=== PATIENT | female | born 1980 ===

== ENCOUNTER → 2016-09-22 | Outpatient (CLI) | payer OTHER ==
[2016-09-22 13:34] LABS: BASO % 0.6 %; BASO ABS # 0.04 K/uL (0-0.2); COMPLETE YES; EOS % 4.6 %; HEMATOCRIT 35.4 % (37-47); IG% 0.3 %; LYMPH % 33.5 %; LYMPH ABS # 2.26 K/uL (1.2-3.4); MEAN CELL VOLUME 83.9 fL (80-100); MEAN CORPUSCULAR HEMOGLOBIN 27.7 pg (25-34); MEAN CORPUSCULAR HGB CONC 33.1 g/dl (32-36); MEAN PLATELET VOLUME 11.7 fL (7.4-10.4); MONO % 7.3 %; NEUT % 53.7 %; PLATELET COUNT 227 K/uL (130-400); RED BLOOD COUNT 4.22 M/uL (4.2-5.4); WHITE BLOOD COUNT 6.74 K/uL (4.8-10.8)
[2016-09-22 14:11] LABS: ALT/SGPT 19 U/L (12-78); AST/SGOT 12 U/L (15-37); BLOOD UREA NITROGEN 9 mg/dl (7-18); BUN/CREATININE RATIO 14.3 (10-20); CARBON DIOXIDE 25 mmol/L (21-32); CHLORIDE 105 mmol/L (98-107); CREATININE 0.66 mg/dl (0.60-1.20); GLUCOSE 83 mg/dl (70-99); POTASSIUM 3.9 mmol/L (3.5-5.1); SODIUM 139 mmol/L (136-145)
[2016-09-22 14:23] LABS: ALB/GLOB RATIO 1.1 (0.9-2); ALKALINE PHOSPHATASE 65 U/L (45-117)
== END | disposition home or self-care (01) ==
LOC: C.LABBC 10:47
PROVIDERS: ATTEND Family Medicine
DX: R53.83 Other fatigue (principal); R63.5 Abnormal weight gain; R06.02 Shortness of breath; M79.1 Myalgia

== ENCOUNTER → 2016-10-21 | Outpatient (CLI) | payer OTHER ==
--- NOTE | 2016-10-21 15:28 | ECHOCARDIOGRAM REPORT ---
*NOTICE TO RECEIVING DEMOCRAT AGENCY This information is strictly Confidential and protected under [place] law. [place] law prohibits you from making any further disclosure of this information unless further disclosure is expressly permitted by the written consent of the person to whom it pertains or is authorized by law. A general authorization for the release of medical or other information is not sufficient for this purpose. Hospital accepts no responsibility if the information is made available to any other person, INCLUDING THE PATIENT. Interpretation Summary * Name: DIANNE SULTANA Study Date: 10/21/2016 01:16 PM BP: 155/84 mmHg * Patient Location: [facility] HR: 89 * : 1980 (M/d/yyyy) Gender: Female Height: 62 in * Age: 35 yrs Ethnicity: DE Weight: 126 lb * Ordering Physician: Lolly Njaera * Referring Physician: Lolly Najera * Performed By: Madison Geiger RCS * * Reason For Study: SOB * BSA: 1.6 m2 * -- Conclusions -- * 1. Normal left ventricular size and systolic function. EF 60-65%. No regional wall motion abnormalities. No left ventricular hypertrophy. No significant diastolic dysfunction. * 2. No significant valvular abnormalities. * 3. No prior study available for comparison. Procedure Details * Left Ventricle Normal left ventricular size and systolic function. EF 60-65%. No regional wall motion abnormalities. No left ventricular hypertrophy. No significant diastolic dysfunction. * Right Ventricle The right ventricle is normal in size and function. The right ventricular systolic function is normal as assessed by tricuspid annular plane systolic excursion (TAPSE) (normal >1.5 cm). * Atria The left atrial size is normal. Right atrial size is normal. There is no evidence of atrial septal defect, but resolution does not allow assessment for a patent foramen ovale. * Mitral Valve The mitral valve leaflets appear normal. There is no evidence of stenosis, fluttering, or prolapse. There is trace mitral regurgitation. * Tricuspid Valve The tricuspid valve anatomy is normal. There is no tricuspid stenosis. There is trace tricuspid regurgitation. * Aortic Valve The aortic valve is normal in structure and function. The aortic valve is trileaflet. No hemodynamically significant valvular aortic stenosis. No aortic regurgitation is present. * Pulmonic Valve The pulmonary valve is inadequately visualized, but the Doppler data is adequate for interpretation. There is no pulmonic valvular stenosis. Trace pulmonic valvular regurgitation. * Great Vessels The aortic root is normal size. Ascending aorta of normal dimension Aortic arch of normal dimension. Normal pulmonary venous flow pattern. * Pericardium/Pleural There is no pericardial effusion. * Great Vessels Normal inferior vena cava size and collapsability with sniff indicates a normal right atrial pressure of 3 mmHg * * MMode 2D Measurements and Calculations * IVSd 0.67 cm * IVSs 0.96 cm * * LVIDd 4.0 cm * LVIDs 2.5 cm * LVPWd 0.75 cm * LVPWs 1.2 cm * * IVS/LVPW 0.89 * FS 35.9 % * EDV(Teich) 68.9 ml * ESV(Teich) 23.4 ml * EF(Teich) 66.1 % * * EDV(cubed) 62.7 ml * ESV(cubed) 16.5 ml * EF(cubed) 73.7 % * % IVS thick 44.1 % * % LVPW thick 64.7 % * * LV mass(C)d 78.7 grams * LV mass(C)dI 50.2 grams/m\S\2 * LV mass(C)s 75.6 grams * LV mass(C)sI 48.2 grams/m\S\2 * * CO(Teich) 4.0 l/min * CI(Teich) 2.6 l/min/m\S\2 * SV(Teich) 45.5 ml * SI(Teich) 29.0 ml/m\S\2 * CO(cubed) 4.1 l/min * CI(cubed) 2.6 l/min/m\S\2 * SV(cubed) 46.2 ml * SI(cubed) 29.4 ml/m\S\2 * * Ao root diam 2.9 cm * Ao root area 6.5 cm\S\2 * ACS 1.9 cm * LA dimension 3.3 cm * * asc Aorta Diam 2.5 cm * * LA/Ao 1.2 * * LVAd ap4 27.7 cm\S\2 * LVLd ap4 8.0 cm * EDV(MOD-sp4) 79.0 ml * LVAs ap4 13.7 cm\S\2 * LVLs ap4 5.9 cm * ESV(MOD-sp4) 27.0 ml * EF(MOD-sp4) 65.8 % * * LVAd ap2 25.0 cm\S\2 * LVLd ap2 8.0 cm * EDV(MOD-sp2) 66.0 ml * LVAs ap2 11.5 cm\S\2 * LVLs ap2 6.1 cm * ESV(MOD-sp2) 19.0 ml * EF(MOD-sp2) 71.2 % * * CO(MOD-sp4) 4.6 l/min * CI(MOD-sp4) 2.9 l/min/m\S\2 * SV(MOD-sp4) 52.0 ml * SI(MOD-sp4) 33.1 ml/m\S\2 * * CO(MOD-sp2) 4.2 l/min * CI(MOD-sp2) 2.7 l/min/m\S\2 * SV(MOD-sp2) 47.0 ml * SI(MOD-sp2) 30.0 ml/m\S\2 * * * * * * Doppler Measurements and Calculations * MV E max matias 75.0 cm/sec * MV A max matias 61.2 cm/sec * * MV E/A 1.2 * * MV P1/2t max matias 92.9 cm/sec * MV P1/2t 99.5 msec * MVA(P1/2t) 2.2 cm\S\2 * MV dec slope 273.4 cm/sec\S\2 * MV dec time 0.32 sec * * Ao V2 max 138.1 cm/sec * Ao max PG 7.6 mmHg * Ao max PG (full) 3.2 mmHg * * LV V1 max PG 4.4 mmHg * * LV V1 max 105.3 cm/sec * * TV E max matias 47.4 cm/sec * * PA V2 max 104.5 cm/sec * PA max PG 4.4 mmHg * *
== END | disposition home or self-care (01) ==
LOC: C.CPL 12:57
PROVIDERS: ATTEND Physician Assistant Medical
DX: R06.02 Shortness of breath (principal)

== ENCOUNTER → 2016-11-26 | Outpatient (CLI) | payer OTHER ==
[2016-11-26 17:41] LABS: FERRITIN 9.1 ng/ml (8.0-388.0)
== END | disposition home or self-care (01) ==
LOC: C.LABBC 14:46
PROVIDERS: ATTEND Physician Assistant Medical
DX: E55.9 Vitamin D deficiency, unspecified (principal); R53.83 Other fatigue; R06.02 Shortness of breath

== ENCOUNTER → 2017-07-21 | Outpatient (CLI) | payer OTHER ==
[2017-07-21 12:37] LABS: BASO % 0.5 %; BASO ABS # 0.04 K/uL (0-0.2); EOS % 1.6 %; EOS ABS # 0.14 K/uL (0-0.5); HEMATOCRIT 38.9 % (37-47); HEMOGLOBIN 12.9 g/dL (12.0-16.0); IG# 0.02 K/uL (0.00-0.02); LYMPH % 21.6 %; LYMPH ABS # 1.87 K/uL (1.2-3.4); MEAN CELL VOLUME 87.6 fL (80-100); MEAN CORPUSCULAR HEMOGLOBIN 29.1 pg (25-34); MEAN CORPUSCULAR HGB CONC 33.2 g/dl (32-36); MEAN PLATELET VOLUME 11.2 fL (7.4-10.4); MONO % 4.7 %; MONO ABS # 0.41 K/uL (0.11-0.59); NEUT % 71.4 %; NEUT ABS # 6.18 K/uL (1.4-6.5); PLATELET COUNT 235 K/uL (130-400); RED CELL DISTRIBUTION WIDTH CV 13.1 % (11.5-14.5); RED CELL DISTRIBUTION WIDTH SD 42.2 fL (36.4-46.3); WHITE BLOOD COUNT 8.66 K/uL (4.8-10.8)
== END | disposition home or self-care (01) ==
LOC: C.LAB1850 11:39
PROVIDERS: ATTEND Obstetrics & Gynecology
DX: N92.6 Irregular menstruation, unspecified (principal)

== ENCOUNTER → 2017-08-02 | Outpatient (CLI) | payer OTHER | END | disposition home or self-care (01) | LOC: C.PAPS 17:19 | PROVIDERS: ATTEND Obstetrics & Gynecology | DX: Z12.4 Encounter for screening for malignant neoplasm of cervix (principal) ==